=== PATIENT | male | born 1960 | race Two or more races ===

== ENCOUNTER 2022-05-20 07:13 | Inpatient (IN) | payer MEDICAID, OTHER ==
[~2022-05-20] VITALS: Ht 177.8 cm; Wt 76.2 kg
[2022-05-20 09:55] LABS: HEMATOCRIT. 41.8 % (42.0-52.0); HEMOGLOBIN. 13.4 g/dL (14.0-18.0); MEAN CORPUSCULAR HEMOGLOBIN 34.1 pg (28.0-32.0); MEAN PLATELET VOLUME 6.9 fl (7.4-10.4); PLATELET 307 x1000/uL (130-400); RED BLOOD CELL COUNT 3.94 mill/uL (4.7-6.1); RED CELL DISTRIBUTION WIDTH 13.4 % (11.6-14.6)
[2022-05-20 10:07] LABS: CHLORIDE 107 mEq/L (98-107)
[2022-05-20 10:16] LABS: ETHANOL BLOOD < 10 mg/dL
[2022-05-20 10:51] LABS: PLATELET ESTIMATE NORMAL
[2022-05-20 21:59] LABS: CLARITY URINE CLEAR (CLEAR); COLOR URINE YELLOW (YELLOW); KETONES URINE TRACE (NEGATIVE); LEUKOCYTE ESTERASE URINE NEGATIVE (NEGATIVE); NITRITE URINE NEGATIVE (NEGATIVE); OCCULT BLOOD URINE NEGATIVE (NEGATIVE); PROTEIN URINE 1+ (NEGATIVE); SPECIFIC GRAVITY URINE 1.025 (1.005-1.030)
[2022-05-20 22:15] LABS: *AMPHETAMINES SCREEN URINE PRESUMTIVE POSITIVE (NEGATIVE); *BARBITURATES SCREEN URINE NEGATIVE (NEGATIVE); *BENZODIAZEPINES SCREEN URINE NEGATIVE (NEGATIVE); *COCAINE SCREEN URINE NEGATIVE (NEGATIVE); CANNABINOID URINE SCREEN PRESUMTIVE POSITIVE (NEGATIVE); METHADONE URINE SCREEN NEGATIVE (NEGATIVE); OPIATES URINE SCREEN NEGATIVE (NEGATIVE); PHENCYCLIDINE URINE SCREEN PRESUMTIVE POSITIVE (NEGATIVE)
[2022-05-20 22:30] VITALS: BP 131/85
[2022-05-20] MEDS ORDERED: LORAZEPAM 2MG/ML CPJ IV PRN (23:00)
[2022-05-21] VITALS: BP 138/83
[2022-05-21 04:00] VITALS: BP 132/84
[2022-05-21 07:28] LABS: BASOPHILS % 0.3 % (0.0-2.0); EOSINOPHILS % 0.3 % (0.0-5.0); HEMATOCRIT. 39.5 % (42.0-52.0); HEMOGLOBIN. 13.5 g/dL (14.0-18.0); LYMPHOCYTES % 13.6 % (20.0-50.0); MEAN CORPUSCULAR HEMOGLOBIN 35.2 pg (28.0-32.0); MEAN CORPUSCULAR VOLUME 103.4 fL (80.0-94.0); MEAN PLATELET VOLUME 6.7 fl (7.4-10.4); MONOCYTES % 9.7 % (2.0-8.0); NEUTROPHILS % 76.1 % (40.0-76.0); PLATELET 319 x1000/uL (130-400); RED BLOOD CELL COUNT 3.82 mill/uL (4.7-6.1); RED CELL DISTRIBUTION WIDTH 13.4 % (11.6-14.6)
[2022-05-21 08:01] LABS: CHLORIDE 107 mEq/L (98-107)
[2022-05-21 08:10] VITALS: BP 119/67
[2022-05-21] MEDS ORDERED: PNEUMOCOCCAL 23-VAL P-SAC VAC 0.5 ML IM ONE (09:00)
[2022-05-21] MEDS ORDERED: FOLIC ACID 1MG TABLET PO SCH (09:00)
[2022-05-21] MEDS ORDERED: MULTIVITAMINS,THER W-MINERALS TABLET PO SCH (09:00)
[2022-05-21] MEDS ORDERED: PANTOPRAZOLE 40MG DR TABLET PO SCH (09:00)
[2022-05-21] MEDS ORDERED: INFLUENZA VACCINE 05/PF 0.5 ML SYRINGE IM ONE (09:00)
[2022-05-21] MEDS ORDERED: THIAMINE HCL 100MG TABLET PO SCH (09:00)
[2022-05-21 12:00] VITALS: BP 124/83
[2022-05-21 14:40] VITALS: BP 128/80
[2022-05-21 14:44] VITALS: BP 128/80
== END 2022-05-21 16:22 | disposition home or self-care (01) | DRG 52 ==
LOC: ER 07:13 → 8WST 13:34 → EDBEDREQTM 13:36 → EDBEDREQ 13:36 → ER 22:06 → CANBEDREQ 22:22
PROVIDERS: ADMIT Internal Medicine; ATTEND Internal Medicine
DX: G92.9 Unspecified toxic encephalopathy (principal); F10.129 Alcohol abuse with intoxication, unspecified; J45.909 Unspecified asthma, uncomplicated; Z20.822 Contact with and (suspected) exposure to COVID-19; F17.210 Nicotine dependence, cigarettes, uncomplicated; R74.01 Elevation of levels of liver transaminase levels
CPT/HCPCS: 36415; 71045; 80048; 80053; 80305; 80320; 81003; 85025; 87426; 90686; 90732; 99285; G0480

== ENCOUNTER 2024-04-11 05:07 | Emergency (ER) | payer OTHER ==
[~2024-04-11] VITALS: Ht 177.8 cm; Wt 78.3 kg
[~2024-04-11 05:07] MED LIST: CEFP200T13 MT; CEPH500C2 MT; CLIN-194 MT; DOXY100C5 MT; IBUP-2029 MT; NAPR-681 MT
[2024-04-11 05:16] VITALS: BP 126/75; PULSE 93; RESP 16; TEMP 98.3; O2SAT 98
[2024-04-11 05:58] LABS: CLARITY URINE CLOUDY (CLEAR); COLOR URINE DARK YELLOW (YELLOW); GLUCOSE URINE NEGATIVE (NEGATIVE); KETONES URINE NEGATIVE (NEGATIVE); LEUKOCYTE ESTERASE URINE 2+ (NEGATIVE); NITRITE URINE NEGATIVE (NEGATIVE); OCCULT BLOOD URINE 3+ (NEGATIVE); PROTEIN URINE 1+ (NEGATIVE); SPECIFIC GRAVITY URINE 1.029 (1.005-1.030)
[2024-04-11 06:12] LABS: WBC URINE TNTC /hpf (0-2)
[2024-04-11 06:13] LABS: RBC URINE 25-50 /hpf (0-2); SQUAMOUS EPITHELIAL CELL URINE NONE SEEN /lpf (RARE/1+)
[2024-04-11 06:15] LABS: BACTERIA URINE TRACE
[2024-04-11] MEDS ORDERED: DOXY100C5 MT (06:26)
[2024-04-11] MEDS: CEFTRIAXONE SODIUM 500MG VIAL IM ONE (06:38)
[2024-04-13 04:08] LABS: CHLAMYDIA TRACHOMATIS NAA Negative (Negative); NEISSERIA GONORRHOEAE NAA Positive (Negative)
== END 2024-04-11 06:37 | disposition home or self-care (01) ==
LOC: ER 05:07
DX: R36.9 Urethral discharge, unspecified (principal); J45.909 Unspecified asthma, uncomplicated; Z79.899 Other long term (current) drug therapy; Z98.890 Other specified postprocedural states
CPT/HCPCS: 99283; 87491; 87591; 81003; 87086; 96372; J0696